=== PATIENT | female | born 1950 | race Caucasian/White ===

== ENCOUNTER 2024-02-22 18:12 | Inpatient (IN) | payer MEDICARE, OTHER ==
[~2024-02-22] VITALS: Ht 152.4 cm; Wt 39.5 kg
[2024-02-22] MEDS ORDERED: MENT71OI TP (19:15)
[2024-02-22] MEDS ORDERED: ACET120S39 RC (19:15)
[2024-02-22] MEDS ORDERED: ONDA4TAB11 PO (19:15)
[2024-02-22] MEDS ORDERED: BISA10SU95 RC (19:15)
[2024-02-22] MEDS ORDERED: GABA-532 PO (19:15)
[2024-02-22] MEDS ORDERED: MELA3TAB41 PO (19:15)
[2024-02-22] MEDS ORDERED: LORAZEPAM IM (19:15)
[2024-02-22] MEDS ORDERED: OLAN5TAB3 PO ×2 (19:15)
[2024-02-22] MEDS ORDERED: BISA-79 PO (19:15)
[2024-02-22] MEDS ORDERED: MIRT7.5T10 PO (19:15)
[2024-02-22] MEDS ORDERED: SENN8.6T19 PO (19:15)
[2024-02-22] MEDS ORDERED: MULT-1119 PO (19:15)
[2024-02-22] MEDS ORDERED: HYOS0.127 SL (19:15)
[2024-02-22] MEDS ORDERED: LORA0.5T48 PO (19:15)
[2024-02-22] MEDS ORDERED: OMEG1CAP74 PO (19:15)
[2024-02-22] MEDS ORDERED: LEVO200T9 PO (19:15)
[2024-02-22] MEDS ORDERED: VALP250S3 PO (19:15)
[2024-02-22] MEDS ORDERED: QUET25TA PO (19:15)
[2024-02-22 19:16] LABS: BASOPHILS # (AUTO) 0.1 K/UL (0.0-0.2); BASOPHILS % (AUTO) 0.8 % (0.0-2.0); EOSINOPHILS # (AUTO) 0.3 K/uL (0.0-0.7); EOSINOPHILS % (AUTO) 3.6 % (0.0-7.0); HEMATOCRIT 40.1 % (31.2-41.9); HEMOGLOBIN 13.6 g/dL (10.9-14.3); LYMPHOCYTES % (AUTO) 25.4 % (20.5-51.5); MEAN CORPUSCULAR HEMOGLOBIN 30.2 uug (24.7-32.8); MEAN CORPUSCULAR HGB CONC 34 g/dL (32.3-35.6); MONOCYTES # (AUTO) 0.5 K/uL (0.1-1.30); MONOCYTES % (AUTO) 6.7 % (0.0-11.0); NEUTROPHILS # (AUTO) 5.1 K/uL (1.8-8.9); NEUTROPHILS % (AUTO) 63.5 % (38.5-71.5); PLATELET COUNT (AUTO) 256 K/uL (179-408); RED BLOOD CELL COUNT(AUTO) 4.51 MIL/uL (3.63-4.92); RED CELL DISTRIBUTION WIDTH 14.2 % (12.3-17.7)
[2024-02-22 19:23] LABS: DIFFERENTIAL COMMENT 1
[2024-02-22 19:36] LABS: CALCIUM 9.8 mg/dL (8.5-10.1); CARBON DIOXIDE 29 mmol/L (21-32); CHLORIDE 108 mmol/L (98-107); CREATININE 0.6 mg/dL (0.6-1.3); GLUCOSE 89 mg/dL (74-106); POTASSIUM 3.6 mmol/L (3.5-5.1); SODIUM SERUM 145 mmol/L (136-145); UREA NITROGEN, BLOOD 25 mg/dL (7-18)
[2024-02-22 19:44] LABS: ALANINE AMINOTRANSFERASE 19 U/L (14-59); ALBUMIN 3.2 g/dL (3.4-5.0); ALKALINE PHOSPHATASE 143 U/L (50-136); ASPARTATE AMINOTRANSFERASE 7 U/L (15-37); BILIRUBIN,DIRECT 0.1 mg/dL (0.0-0.2); BILIRUBIN,TOTAL 0.3 mg/dL (0.2-1.0); TOTAL PROTEIN, SERUM 7.6 g/dL (6.4-8.2)
[2024-02-22 19:45] LABS: ETHANOL < 3 MG/DL (0-10)
[2024-02-23] MEDS ORDERED: MAG HYDROX/AL HYDROX/SIMETH 30 ML LIQUID UDC PO PRN (00:45)
[2024-02-23] MEDS ORDERED: MAGNESIUM HYDROXIDE 30 ML LIQUID UDC PO PRN (00:45)
[2024-02-23] MEDS ORDERED: NEOMY/BACITRA/POLYMYXIN B OINT UD PACKET TP ONE (00:49)
[2024-02-23] MEDS: BLOOD SUGAR DIAGNOSTIC 1 EACH STRIP VI ONE (01:06)
[2024-02-23 02:53] LABS: ACETAMINOPHEN < 10.0 ug/mL (10-30)
[2024-02-23 08:24] VITALS: BP 122/73; TEMP 97.9; O2SAT 97
[2024-02-23] MEDS: OXCARBAZEPINE 150 MG TABLET PO SCH (16:39)
[2024-02-23] MEDS: ACETAMINOPHEN 325 MG TABLET PO PRN (16:41)
[2024-02-23 16:47] VITALS: BP 122/70; TEMP 97.9; O2SAT 97
[2024-02-23] MEDS: QUETIAPINE FUMARATE 25 MG TABLET PO SCH (20:47)
[2024-02-24 00:29] VITALS: BP 117/67; TEMP 97.1
[2024-02-24 09:16] VITALS: BP 107/65; TEMP 97.6; O2SAT 97
[2024-02-24] MEDS ORDERED: BISACODYL 10 MG SUPP.RECT RC PRN (14:30)
[2024-02-24 16:56] VITALS: BP 117/60; TEMP 97.8; O2SAT 97
[2024-02-24] MEDS: OXCARBAZEPINE 150 MG TABLET PO SCH (17:26)
[2024-02-24] MEDS: GABAPENTIN 300 MG CAPSULE PO SCH (17:26)
[2024-02-24] MEDS: OMEGA-3 FATTY ACIDS/FISH OIL CAPSULE PO SCH (17:26)
[2024-02-24 20:07] VITALS: BP 111/64; TEMP 97.6; O2SAT 96
[2024-02-25] MEDS: ZOLPIDEM 5 MG TABLET PO PRN (03:06)
[2024-02-25] MEDS: LEVOTHYROXINE SODIUM 200 MCG TABLET PO SCH (07:03)
[2024-02-25] MEDS: SENNOSIDES 1 TABLET PO SCH (08:31)
[2024-02-25] MEDS: MULTIVIT, IRON, MIN NO. 8, FA TABLET PO SCH (08:31)
[2024-02-25 08:59] VITALS: BP 103/51; TEMP 98.1; O2SAT 97
[2024-02-25] MEDS: OLANZAPINE 10 MG VIAL IM STA (10:00)
[2024-02-25] MEDS: QUETIAPINE FUMARATE 25 MG TABLET PO PRN (16:14)
[2024-02-25 16:35] VITALS: BP 96/53; TEMP 98.1; O2SAT 97
[2024-02-25 19:52] VITALS: BP 101/56; TEMP 98.1; O2SAT 96
[2024-02-26 08:39] VITALS: BP 103/46; TEMP 98; O2SAT 96
[2024-02-26 16:05] VITALS: BP 90/50; TEMP 98.2; O2SAT 96
[2024-02-26 19:53] VITALS: BP 101/51; TEMP 98.1; O2SAT 95
[2024-02-26] MEDS: QUETIAPINE FUMARATE 25 MG TABLET PO SCH (20:41)
[2024-02-26] MEDS: OXCARBAZEPINE 300 MG TABLET PO SCH (20:42)
[2024-02-26 20:45] VITALS: BP 122/63
[2024-02-27 07:30] VITALS: BP 126/66; TEMP 97.8; O2SAT 98
[2024-02-27 17:03] VITALS: BP 123/60; TEMP 97.3; O2SAT 97
[2024-02-27 20:00] VITALS: BP 105/66; TEMP 98; O2SAT 95
[2024-02-28 07:30] VITALS: BP 109/63; TEMP 98.2; O2SAT 93
[2024-02-28] MEDS: QUETIAPINE FUMARATE 25 MG TABLET PO SCH (08:50)
[2024-02-28] MEDS: DEUTETRABENAZINE 12 MG PO SCH (09:12)
[2024-02-28] MEDS: OXCARBAZEPINE 300 MG TABLET PO SCH (13:00)
[2024-02-28 15:20] VITALS: BP 115/59; TEMP 98; O2SAT 94
[2024-02-28 20:00] VITALS: BP 127/62; TEMP 98.1; O2SAT 94
[2024-02-28] MEDS: REMEDY ESSENTIAL ZINC PASTE 113 GM TOP SCH (20:21)
[2024-02-29 07:30] VITALS: BP 90/55; TEMP 98; O2SAT 96
[2024-02-29 16:15] VITALS: BP 109/63; TEMP 98; O2SAT 96
[2024-02-29 20:00] VITALS: BP 107/74; TEMP 98; O2SAT 93
[2024-02-29] MEDS: TRAZODONE 50 MG TABLET PO SCH (20:19)
[2024-03-01 07:30] VITALS: BP 120/72; TEMP 97.7; O2SAT 96
[2024-03-01] MEDS: OLANZAPINE 10 MG VIAL IM STA (09:33)
[2024-03-01 16:47] VITALS: BP 101/50; TEMP 97.3; O2SAT 98
[2024-03-01 20:00] VITALS: BP 119/69; TEMP 97.2; O2SAT 95
[2024-03-02] MEDS: QUETIAPINE FUMARATE 25 MG TABLET PO SCH (08:46)
[2024-03-02 08:53] VITALS: BP 119/57; TEMP 97.8; O2SAT 97
[2024-03-02 16:55] VITALS: BP 111/67; TEMP 98; O2SAT 97
[2024-03-02 19:59] VITALS: BP 116/60; TEMP 97.8; O2SAT 96
[2024-03-03 08:47] VITALS: BP 111/60; TEMP 98.4; O2SAT 97
[2024-03-03] MEDS: busPIRone 5 MG TABLET PO SCH (14:30)
[2024-03-03 16:09] VITALS: BP 115/69; TEMP 98; O2SAT 97
[2024-03-03 20:04] VITALS: BP 110/64; TEMP 98.1; O2SAT 96
[2024-03-04 07:30] VITALS: BP 118/69; TEMP 98; O2SAT 96
[2024-03-04 15:00] VITALS: BP 122/63; TEMP 98; O2SAT 96
[2024-03-04] MEDS: QUETIAPINE FUMARATE 25 MG TABLET PO SCH (20:51)
[2024-03-05 07:30] VITALS: BP 107/56; TEMP 98.6; O2SAT 92
[2024-03-05 18:19] VITALS: BP 88/45; O2SAT 94
[2024-03-05 20:00] VITALS: BP 150/89; TEMP 98; O2SAT 95
[2024-03-05] MEDS: QUETIAPINE FUMARATE 25 MG TABLET PO SCH (20:47)
[2024-03-06 08:13] VITALS: BP 118/60; TEMP 98.2; O2SAT 98
[2024-03-06] MEDS: AUSTEDO 6 MG PO SCH (09:00)
[2024-03-06] MEDS: busPIRone 5 MG TABLET PO SCH (09:00)
[2024-03-06] MEDS: CLONAZEPAM 0.5 MG TABLET PO SCH (14:00)
[2024-03-06 15:32] VITALS: BP 129/68; TEMP 98; O2SAT 98
[2024-03-07 08:05] VITALS: BP 135/65; TEMP 98; O2SAT 98
[2024-03-07 13:57] LABS: *BILIRUBIN,URIN NEGATIVE (NEGATIVE); *BLOOD, URINE NEGATIVE (NEGATIVE); *CLARITY,URINE CLEAR (CLEAR); *COLOR,URINE YELLOW (YELLOW); *KETONES,URINE NEGATIVE (NEGATIVE); *PROTEIN,URINE NEGATIVE (NEGATIVE); *UROBILINOGEN,URINE 0.2 E.U./dl (NORMAL); LEUKOCYTE ESTERASE ,URINE 1+ (NEGATIVE); NITRITE, URINE POSITIVE (NEGATIVE); UGLUCOSE NEGATIVE (NEGATIVE)
[2024-03-07 14:45] LABS: BACTERIA,URINE MANY /HPF (NONE SEEN); RBC,URINE 0-3 /HPF (0-3); SQUAMOUS EPITHELIAL CELL,UR FEW /HPF (NONE SEEN)
[2024-03-07] MEDS: CEphaleXIN 500 MG CAPSULE PO SCH (15:17)
[2024-03-07 15:33] VITALS: BP 112/59; TEMP 98; O2SAT 96
[2024-03-07 19:51] VITALS: BP 144/79; TEMP 98; O2SAT 90
[2024-03-07] MEDS: TRAZODONE 50 MG TABLET PO SCH (20:16)
[2024-03-08 03:48] LABS: *AMPHETAMINE, URINE NEGATIVE (NEGATIVE); *BARBITURATE, URINE NEGATIVE (NEGATIVE); *BENZODIAZEPINE, URINE NEGATIVE (NEGATIVE); *CANNABINOID, URINE NEGATIVE (NEGATIVE); *COCCAINE, URINE NEGATIVE (NEGATIVE); *OPIATE, URINE NEGATIVE (NEGATIVE); *PHENCYCLIDINE SCREEN,URINE NEGATIVE (NEGATIVE); FENTANYL, URINE NEGATIVE (NEGATIVE)
[2024-03-08 08:08] LABS: BASOPHILS # (AUTO) 0.1 K/UL (0.0-0.2); BASOPHILS % (AUTO) 1.1 % (0.0-2.0); EOSINOPHILS # (AUTO) 0.6 K/uL (0.0-0.7); EOSINOPHILS % (AUTO) 8.1 % (0.0-7.0); HEMATOCRIT 37.5 % (31.2-41.9); HEMOGLOBIN 12.4 g/dL (10.9-14.3); LYMPHOCYTES # (AUTO) 2.2 K/uL (0.8-4.8); LYMPHOCYTES % (AUTO) 30.7 % (20.5-51.5); MEAN CORPUSCULAR HEMOGLOBIN 29.6 uug (24.7-32.8); MEAN CORPUSCULAR HGB CONC 33 g/dL (32.3-35.6); MEAN CORPUSCULAR VOLUME 89.8 fL (75.5-95.3); MONOCYTES # (AUTO) 0.6 K/uL (0.1-1.30); MONOCYTES % (AUTO) 8.6 % (0.0-11.0); NEUTROPHILS # (AUTO) 3.6 K/uL (1.8-8.9); NEUTROPHILS % (AUTO) 51.5 % (38.5-71.5); PLATELET COUNT (AUTO) 249 K/uL (179-408); RED BLOOD CELL COUNT(AUTO) 4.18 MIL/uL (3.63-4.92); RED CELL DISTRIBUTION WIDTH 14.4 % (12.3-17.7)
[2024-03-08 08:13] VITALS: BP 93/56; TEMP 97.4; O2SAT 97
[2024-03-08 08:14] LABS: DIFFERENTIAL COMMENT 1
[2024-03-08 16:59] VITALS: BP 124/73; TEMP 97.5; O2SAT 97
[2024-03-09 07:51] VITALS: BP 136/85; TEMP 97.6; O2SAT 96
[2024-03-09 16:51] VITALS: BP 139/75; TEMP 97.5; O2SAT 100
[2024-03-09 20:00] VITALS: BP 104/69; TEMP 98; O2SAT 95
[2024-03-10 08:03] VITALS: BP 126/53; TEMP 97.8; O2SAT 99
[2024-03-10 15:49] VITALS: BP 101/60; TEMP 97.8; O2SAT 97
== END 2024-03-10 16:00 | DRG 885 ==
LOC: ER 18:13 → GPS 02-23 00:07
PROVIDERS: ADMIT Psychiatry & Neurology Psychiatry; ATTEND Nurse Practitioner Family
DX: F29 Unspecified psychosis not due to a substance or known physiological condition (principal); G93.41 Metabolic encephalopathy; R53.2 Functional quadriplegia; F03.93 Unspecified dementia, unspecified severity, with mood disturbance; E44.1 Mild protein-calorie malnutrition; R45.851 Suicidal ideations; R64 Cachexia; Z68.1 Body mass index [BMI] 19.9 or less, adult; N39.0 Urinary tract infection, site not specified; F03.94 Unspecified dementia, unspecified severity, with anxiety; F03.918 Unspecified dementia, unspecified severity, with other behavioral disturbance; F39 Unspecified mood [affective] disorder; F25.9 Schizoaffective disorder, unspecified; J44.9 Chronic obstructive pulmonary disease, unspecified; E88.09 Other disorders of plasma-protein metabolism, not elsewhere classified; B96.20 Unspecified Escherichia coli [E. coli] as the cause of diseases classified elsewhere; E03.9 Hypothyroidism, unspecified; G24.01 Drug induced subacute dyskinesia; M24.571 Contracture, right ankle; M24.572 Contracture, left ankle; R62.7 Adult failure to thrive; Z79.899 Other long term (current) drug therapy; Z91.199 Patient's noncompliance with other medical treatment and regimen due to unspecified reason
CPT/HCPCS: 36415; 84443; 84484; 85025; G0480; J2358